=== PATIENT | male | born 1965 | race Hispanic/Latino ===

== ENCOUNTER → 2024-09-01 | Outpatient (CLI) | payer OTHER ==
--- NOTE | 2024-09-01 13:34 | HMCIMG ---
CT PELVIS W/O CONTRAST HISTORY: Pain COMPARISON: None TECHNIQUE: Multiple sequential axial images of the pelvis were obtained from the iliac crests through symphysis pubis. Patient was not given contrast through intravenous route. Oral contrast was not given. FINDINGS: There are normal sized pelvic and inguinal lymph nodes. Fecal material seen throughout the colon. Diverticula are seen within the colon consistent with diverticulosis. No ascites is seen. Atherosclerotic changes are present. There is penile prosthesis. Bilateral hip joint space narrowing is seen. End plate degenerative changes are seen at L4-L5 level with disc space narrowing. There is fluid filled structure noted in the left anterior pelvis measuring 5.3 x 4 cm may be related to reservoir. Pelvic sidewalls are symmetric bilaterally. Bladder is poorly distended. There are small bilateral inguinal hernia with fat content. IMPRESSION: 1. No acute finding. CT was performed with one or more following dose reduction techniques: automated exposure control, adjustment of the mA and kv according to patient's size, or use of a iterative reconstruction technique.
== END | disposition home or self-care (01) ==
LOC: RAH 12:38
PROVIDERS: ATTEND Internal Medicine
DX: K57.30 Diverticulosis of large intestine without perforation or abscess without bleeding (principal); K40.20 Bilateral inguinal hernia, without obstruction or gangrene, not specified as recurrent; N32.89 Other specified disorders of bladder; R19.5 Other fecal abnormalities; M47.816 Spondylosis without myelopathy or radiculopathy, lumbar region; M48.061 Spinal stenosis, lumbar region without neurogenic claudication; M25.852 Other specified joint disorders, left hip; M25.851 Other specified joint disorders, right hip; M25.559 Pain in unspecified hip; I70.90 Unspecified atherosclerosis
CPT/HCPCS: 72192